=== PATIENT | male | born 2000 | race Hispanic/Latino ===

== ENCOUNTER 2024-12-27 20:42 | Emergency (ER) | payer SELFPAY ==
[~2024-12-27] VITALS: Ht 175.3 cm; Wt 64.2 kg
[2024-12-27 20:52] VITALS: BP 143/84; PULSE 75; RESP 18; TEMP 98.4; O2SAT 100
[2024-12-27] MEDS ORDERED: CEPH500B PO (21:55)
--- NOTE | 2024-12-27 21:55 | ERN ---
ED Note History of Present Illness Stated Complaint: UNKNOWN OBJECT BROKE IN HAND Chief Complaint: Hand Problem/Injury Time Seen by MD: 20:44 Time Seen by Midlevel: 20:44 Dictation: The patient is a 24-year-old male with no past medical history who presents to the emergency department with complaints of splinter to right 2nd knuckle. Patient reports he had a a thorn three days ago. Reports he removed partial thorn but does not know if the rest was still in there. Patient denies any fevers Allergies: Coded Allergies: No Known Allergies (Unverified Allergy, Unknown, 12/27/24) Home Meds Active Scripts Cephalexin Monohydrate (Keflex) 500 Mg Cap, 500 MG PO QID for 7 Days, #28 CAP Prov:LOREN FERRARI [employer] 12/27/24 Past Medical History Past Medical History: No Pertinent History Surgical History: Other Surgical History Other: LEFT WRIST RN Note Reviewed/Agreed w/PFSH: Yes Review of System Dictation Constitutional: Negative for fever,chills, and weight loss Eyes: Negative for injury, pain,redness, and discharge ENT: Negative for injury,pain or swelling Cardiovascular: Negative for chest pain, palpitations, and edema Respiratory: Negative for shortness of breath, cough, and wheezing, Abdomen/GI: Negative for abdominal pain, nausea, vomiting, diarrhea, and constipation Back: Negative for injury and pain : Negative for injury, bleeding and discharge MS/Extremity: Right hand injury Skin: Negative for rash, and discoloration Neuro: Negative for headache, weakness, numbness, tingling, and seizure Psych: Negative for suicide ideation, homicidal ideation, and hallucinations Initial Vital Sign VS Vital Signs Date Time Temp Pulse Resp B/P (MAP) Pulse Ox O2 Delivery O2 Flow Rate FiO2 12/27/24 20:43 98.4 75 16 143/84 100 Room Air 12/27/24 20:52 0 21 Physical Exam Dictation Vital Signs reviewed General Appearance: Alert, oriented x 3, no acute distress, well developed, nourished. Head and Face: non-traumatic. Eyes: PERRL, pink conjunctivas, eyelid no trauma, anterior chamber with arcus s enilis. Ears: Pinnas intact and no signs of trauma or erythema ear canals clear and no discharge TM no erythema Nose: No discharge, no bleeding. Oropharynx: Mouth normal, tongue pink. pharynx clear,no erythema, tonsils no exudates, no abscesses noted, mucous membrane moist Neck: Supple, non-tender, no thyromegaly, no masses, no JVD, no bruits Breast:Deferred Chest:No tenderness, no crepitus, no paradoxical movement, no retractions Lungs:Clear, well-ventilated, symmetric, no rales, no wheezing, no rhonchi, no stridor, good breath sounds bilaterally Heart: Regular rate, regular rhythm, no murmur, no gallops Vascular: no peripheral edema, Abdomen: Soft, positive bowel sounds, nondistended, no guarding, nontender, no rebound, no masses no hepatomegaly, no splenomegaly, no Saavedra's sign, no hernias. Rectal: Deferred Genital: Deferred Neurological: Normal speech, motor function intact, sensory function intact Musculoskeletal: Neck nontender, full range of motion, back nontender, full range of motion, Extremities: nontender, full range of motion Skin: Color pink, dry, no turgor, no rash, no lacerations, no abrasions, no contusions., mild swelling and erythema to 2nd metacarpophalangeal joint, no drainage Lymphatic: Deferred Results (Laboratory/Radiology) Laboratory/Radiology REASON: pain, swelling ORDERING PHYSICIAN: LOREN FERRARI PROCEDURE: HAND 3V RT - HAND 3+VWS RT EXAM: CR right Hand, 3 View. CLINICAL HISTORY: pain, swelling COMPARISON: None provided. FINDINGS: BONES: Old fracture deformity at the distal fifth metacarpal. No acute displaced fractures identified. JOINTS: No evidence of dislocation. The joint spaces are normal. SOFT TISSUES: The soft tissues appear within normal limits. No radiopaque foreign body is seen. IMPRESSION: No acute pathology evident. No acute fracture or dislocation. /[place] Labs Reviewed?: Yes ED Course ED Course Orders Procedure Category Date Status Time Hand 3+Vws Rt RAD 12/27/24 Resulted 20:55 Tetanus,Diphtheria PHA 12/27/24 Complete Tox [Adult] (Diphther 21:30 Ibuprofen 600 Mg PHA 12/27/24 Complete Tablet (Motrin) 21:30 Ceftriaxone 1g Vial PHA 7/24/25 Complete (Rocephine 1g Inj) 21:30 Current Medications Medications (Trade) Dose Ordered Sig/Chen Route PRN Reason Start Time Stop Time Status Last Admin Dose Admin Ceftriaxone Sodium (ROCEphine 1G INJ) 1 gm ONCE ONCE IM 12/27/24 21:30 12/27/24 21:31 DC 12/27/24 21:22 Ibuprofen (moTRIN) 600 mg ONCE ONCE PO 12/27/24 21:30 12/27/24 21:31 DC 12/27/24 21:22 Tetanus/ Diphtheria Toxoids Adsorbed (DiphthERIA-teTANUS TOXOID [ADULT]/ DECAVAC) 0.5 ml ONCE ONCE IM 12/27/24 21:30 12/27/24 21:31 DC 12/27/24 21:24 Vital Signs Date Time Temp Pulse Resp B/P (MAP) Pulse Ox O2 Delivery O2 Flow Rate FiO2 12/27/24 20:52 98.4 75 18 143/84 100 Room Air* 0 21 12/27/24 20:43 98.4 75 16 143/84 100 Room Air Medical Decision Making MDM The patient is a 24-year-old male with no past medical history who presents to the emergency department with complaints of splinter to right 2nd knuckle. Patient reports he had a a thorn three days ago. Reports he removed partial thorn but does not know if the rest was still in there. Patient denies any fevers No obvious foreign body seen in x-ray. Patient with mild erythema to 2nd digit metacarpophalangeal joint. No drainage. No identifiable splinter Patient with a full range of movement to finger but with some tenderness. Neurovascularly intact. We will treat patient with the antibiotics and refer him to orthopedic. On physical exam patient is in no acute distress. Nontoxic appearance Differential diagnosis: Foreign body in hand, splinter, cellulitis Need for hospitalization: Patient does not meet criteria for hospitalization. There are no social concerns with this patient. DX & DISP Disposition: Discharge Departure Impression: Primary Impression: Splinter of right hand Condition: Stable Scripts Cephalexin Monohydrate (Keflex) 500 Mg Cap 500 MG PO QID for 7 Days, #28 CAP Prov: LOREN FERRARI [employer] 12/27/24 Additional Instructions: Please take your medications as prescribed. Follow up with the primary doctor in 1-2 days. If symptoms worsen, you develop fevers please return to ER. FOLLOW-UP WITH PRIMARY CARE PROVIDER IN 1 TO 2 DAYS. TAKE MEDICATIONS DIRECTED HERE IN THE EMERGENCY ROOM. OKAY TO CONTINUE HOME MEDICATIONS UNLESS OTHERWISE DISCUSSED DURING YOUR VISIT IN THE EMERGENCY ROOM TODAY. RETURN TO YOUR NEAREST EMERGENCY ROOM IF SYMPTOMS WORSEN OR IF THERE IS NO IMPROVEMENT. CALL 911 IF YOU NEED IMMEDIATE ASSISTANCE. TAKE TYLENOL [id number] NEEDED AND IF NO CONTRAINDICATIONS ARE PRESENT. INCREASE ORAL HYDRATION. A WOUND CULTURE OR URINE CULTURE WAS ORDERED HERE IN THE EMERGENCY ROOM DEPARTMENT PLEASE FOLLOW-UP WITH PRIMARY CARE PROVIDER AND ADVISE THEM TO GET REPEAT PORTS FROM OUR FACILITY. IF YOU HAD ANY ROGER WRAP/SPLINTS THAT WERE APPLIED HERE, PLEASE DO NOT REMOVE THEM UNTIL YOU SEE YOUR PRIMARY CARE OR SPECIALTY. Referrals: STUART VALLEJO MD Time of Disposition: 21:55 I have reviewed the case, and I agree with, Diagnosis and Plan LOREN FERRARI [facility] Dec 27, 2024 21:55
--- NOTE | 2024-12-27 22:20 | HMCIMG ---
EXAM: CR right Hand, 3 View. CLINICAL HISTORY: pain, swelling COMPARISON: None provided. FINDINGS: BONES: Old fracture deformity at the distal fifth metacarpal. No acute displaced fractures identified. JOINTS: No evidence of dislocation. The joint spaces are normal. SOFT TISSUES: The soft tissues appear within normal limits. No radiopaque foreign body is seen. IMPRESSION: No acute pathology evident. No acute fracture or dislocation. /[place]
== END 2024-12-27 22:09 | disposition home or self-care (01) ==
LOC: EDH 20:42
DX: S60.551A Superficial foreign body of right hand, initial encounter (principal); W45.8XXA Other foreign body or object entering through skin, initial encounter; Y93.89 Activity, other specified; Y92.89 Other specified places as the place of occurrence of the external cause; Y99.8 Other external cause status
CPT/HCPCS: 99284; 90714; 73130; 96372; 90471; J0696